=== PATIENT | female | born 1975 | race Two or more races ===

== ENCOUNTER 2023-05-09 20:53 | Inpatient (IN) | payer OTHER ==
[~2023-05-09] VITALS: Ht 149.9 cm; Wt 68.7 kg
[2023-05-09 21:37] LABS: Urine Bacteria FEW /hpf (None Seen); Urine Blood Negative /uL (Negative); Urine Clarity HAZY (Clear); Urine Color Yellow (Yellow); Urine Mucus FEW (None Seen); Urine Protein, UAD 1+ (Negative); Urine Specific Gravity 1.049 (1.001-1.035); Urine Urobilinogen Normal (Negative); Urine WBC 75 /hpf (0 - 5); Urine pH 5.5 (5.0-8.0)
[2023-05-09 23:15] LABS: Basophils # (auto) 0.1 10 ^3/uL (0-0.2); Basophils % (auto) 0.7 % (0.0-2.0); Eosinophils # (auto) 0.2 10 ^3/uL (0-0.8); Eosinophils % (auto) 1.8 % (0.0-7.0); Hematocrit 47.3 % (36.0-46.0); Hemoglobin 15.9 g/dL (12.2-16.2); Lymphocytes # (auto) 2.4 10 ^3/uL (0.4-5.4); Lymphocytes % (auto) 28.2 % (10.0-50.0); Mean Corpuscular Hemoglobin 28.7 pg (28.0-32.0); Mean Corpuscular Hgb Conc. 33.6 g/dL (32.0-36.0); Mean Corpuscular Volume 85.3 fL (80.0-100.0); Monocytes # (auto) 0.7 10 ^3/uL (0-1.3); Monocytes % (auto) 8.8 % (0.0-12.0); Neutrophils # (auto) 5.1 10 ^3/uL (1.6-8.6); Neutrophils % (auto) 60.5 % (37.0-80.0); Nucleated Red Blood Cells % 0.2 %; Red Blood Cells 5.55 10^6/uL (4.0-5.20); Red Cell Distribution Width 13.7 % (11.8-14.3); White Blood Cell 8.5 10^3/uL (4.4-10.8)
[2023-05-09 23:32] LABS: Lactic Acid w/Reflex 2.3 mmol/L (0.4-2.0)
[2023-05-09 23:33] LABS: Alanine Aminotransferase 30 U/L (7-40); Albumin 4.5 g/dL (3.2-4.8); Alkaline Phosphatase 109 U/L (46-116); Anion Gap 10.2 (5-15); Aspartate Aminotransferase 24 U/L (13-40); BUN/Creatinine Ratio 9.7 (10.0-20.0); Bilirubin, Total 0.7 mg/dL (0.2-1.0); Blood Urea Nitrogen 6 mg/dL (9-23); Calcium 9.1 mg/dL (8.5-10.1); Carbon Dioxide 19.8 mmol/L (20-30); Chloride 107 mmol/L (98-107); Glucose 271 mg/dL (74-106); Potassium 4.2 mmol/L (3.5-5.1); Sodium 137 mmol/L (136-145); Total Protein 7.4 g/dL (5.7-8.2)
[2023-05-09 23:42] LABS: CRP High Sensitivity 1.18 mg/dL (<1.0)
[2023-05-09 23:44] LABS: Erythrocyte Sedimentation Rate 14 mm/hr (0-20)
[2023-05-10] MEDS ORDERED: HYDROcodone-ACET 5/325MG TAB PO ONE (01:15)
[2023-05-10] MEDS ORDERED: DexAMETHasone SOD PHOS 10MG/1ML VIAL INJ IV ONE (03:15)
[2023-05-10] MEDS ORDERED: PANTOPRAZOLE 40 MG/10 ML VIAL INJ IV ONE (03:15)
[2023-05-10] MEDS ORDERED: SODIUM CHLORIDE 0.9% 1,950 ML IV ONE (03:15)
[2023-05-10] MEDS ORDERED: ONDANSETRON HCL 4 MG/2 ML VIAL IV ONE (03:45)
[2023-05-10] MEDS ORDERED: CEFTRIAXONE SODIUM 2 GM in D5W 5% 100 ML IV ONE (03:45)
[2023-05-10] MEDS ORDERED: VANCOMYCIN PER PHARMACY 0 MG IV SCH ×2 (03:45→09:00)
[2023-05-10] MEDS ORDERED: MORPHINE SULFATE 4 MG/ML SYR/VIAL IV ONE (03:45)
[2023-05-10] MEDS ORDERED: cefTRIAXone SOD 1,000 MG VL ONE (03:49)
[2023-05-10] MEDS ORDERED: VANCOMYCIN 1GM/250ML 250 ML IV ONE (05:00)
[2023-05-10] MEDS ORDERED: cefTRIAXone 1GM/50ML D5W 50 ML IV ONE (08:30)
[2023-05-10] MEDS ORDERED: SODIUM CHLORIDE 0.9% 1,000 ML IV ONE ×2 (08:30)
[2023-05-10] MEDS ORDERED: NITROGLYCERIN 0.4 MG SL TAB SL PRN ×2 (09:00→14:45)
[2023-05-10] MEDS ORDERED: ACETAMINOPHEN 325 MG TAB PO PRN (09:00)
[2023-05-10] MEDS: SODIUM CHLORIDE 0.9% 1,000 ML IV SCH ×2 (09:00→17:20)
[2023-05-10] MEDS ORDERED: MORPHINE SULFATE INJ 2 MG/ml SYRG IV PRN ×2 (09:00→14:45)
[2023-05-10] MEDS: ENOXAPARIN SOD 40 MG/0.4 ML SYRINGE SC SCH (11:32)
[2023-05-10 18:00] VITALS: BP 124/83; PULSE 96; RESP 17; TEMP 97.7; O2SAT 98
[2023-05-10] MEDS: VANCOMYCIN 1GM/250ML 250 ML IV SCH (18:15)
[2023-05-10 20:00] VITALS: PULSE 83
[2023-05-11] VITALS (7 sets, daily range): BP systolic 103–142; BP diastolic 69–77; PULSE 57–85; RESP 16–18; TEMP 97.3–98.4; O2SAT 94–100
[2023-05-11] MEDS: SODIUM CHLORIDE 0.9% 1,000 ML IV SCH ×3 (02:17→18:40)
[2023-05-11] MEDS: VANCOMYCIN 1GM/250ML 250 ML IV SCH ×2 (04:52→18:40)
[2023-05-11 07:29] LABS: Alanine Aminotransferase 20 U/L (7-40); Alkaline Phosphatase 82 U/L (46-116); Anion Gap 8.7 (5-15); BUN/Creatinine Ratio 11.4 (10.0-20.0); Blood Urea Nitrogen 8 mg/dL (9-23); Calcium 8.5 mg/dL (8.5-10.1); Carbon Dioxide 20.3 mmol/L (20-30); Chloride 108 mmol/L (98-107); Glucose 318 mg/dL (74-106); Potassium 3.7 mmol/L (3.5-5.1); Sodium 137 mmol/L (136-145)
[2023-05-11 07:30] LABS: Albumin 3.6 g/dL (3.2-4.8); Aspartate Aminotransferase 9 U/L (13-40)
[2023-05-11 07:31] LABS: Bilirubin, Total 0.9 mg/dL (0.2-1.0); Total Protein 5.9 g/dL (5.7-8.2)
[2023-05-11 07:35] LABS: Basophils # (auto) 0 10 ^3/uL (0-0.2); Basophils % (auto) 0.2 % (0.0-2.0); Eosinophils # (auto) 0.1 10 ^3/uL (0-0.8); Eosinophils % (auto) 0.7 % (0.0-7.0); Hematocrit 38.8 % (36.0-46.0); Hemoglobin 13.3 g/dL (12.2-16.2); Lymphocytes # (auto) 1.9 10 ^3/uL (0.4-5.4); Mean Corpuscular Hemoglobin 29.3 pg (28.0-32.0); Mean Corpuscular Hgb Conc. 34.1 g/dL (32.0-36.0); Mean Corpuscular Volume 85.9 fL (80.0-100.0); Monocytes # (auto) 0.6 10 ^3/uL (0-1.3); Monocytes % (auto) 8.3 % (0.0-12.0); Neutrophils % (auto) 65.8 % (37.0-80.0); Nucleated Red Blood Cells % 0.1 %; Red Blood Cells 4.52 10^6/uL (4.0-5.20); Red Cell Distribution Width 13.2 % (11.8-14.3); White Blood Cell 7.6 10^3/uL (4.4-10.8)
[2023-05-11] MEDS: cefTRIAXone 1GM/50ML D5W 50 ML IV SCH (11:12)
[2023-05-11] MEDS: ENOXAPARIN SOD 40 MG/0.4 ML SYRINGE SC SCH (11:12)
[2023-05-12] MEDS: SODIUM CHLORIDE 0.9% 1,000 ML IV SCH ×2 (02:06→10:00)
[2023-05-12] MEDS: VANCOMYCIN 1GM/250ML 250 ML IV SCH ×2 (04:54→15:00)
[2023-05-12 05:00] VITALS: BP 99/53; PULSE 79; RESP 16; TEMP 97.9; O2SAT 100
[2023-05-12 08:00] VITALS: PULSE 59
[2023-05-12 08:06] VITALS: RESP 18
[2023-05-12 09:36] VITALS: BP 116/79; PULSE 79; RESP 19; TEMP 98.9; O2SAT 97
[2023-05-12] MEDS: cefTRIAXone 1GM/50ML D5W 50 ML IV SCH (09:59)
[2023-05-12] MEDS: ENOXAPARIN SOD 40 MG/0.4 ML SYRINGE SC SCH (09:59)
[2023-05-12] MEDS ORDERED: CIPR-173 PO (12:29)
[2023-05-12] MEDS ORDERED: METF-372 PO (12:29)
[2023-05-12] MEDS ORDERED: DEXTROSE (50%) 50ML SYRG IV PRN (13:00)
[2023-05-12] MEDS: ACCU-CHEK COMFORT CURVE STRIP VI SCH ×2 (13:21→17:20)
[2023-05-12] MEDS: InsuLIN REG 1unit/0.01ml Soln (100units/ml) SC SCH ×2 (13:29→17:26)
[2023-05-12 14:37] VITALS: BP 115/55; PULSE 71; RESP 19; TEMP 98.3; O2SAT 98
[2023-05-12 16:41] VITALS: BP 106/73; PULSE 72; RESP 19; TEMP 98.3; O2SAT 98
[2023-05-12] MEDS ORDERED: InsuLIN REG 1unit/0.01ml Soln (100units/ml) SC SCH (22:00)
== END 2023-05-12 18:10 | disposition home or self-care (01) | DRG 872 ==
LOC: ER 20:56 → UNDOADMIN 05-10 09:00 → TELE 05-10 09:00 → TELE-WESTW 05-10 17:36
PROVIDERS: ADMIT Nurse Practitioner Family; ATTEND Family Medicine
DX: A41.9 Sepsis, unspecified organism (principal); N39.0 Urinary tract infection, site not specified; E11.42 Type 2 diabetes mellitus with diabetic polyneuropathy; F17.200 Nicotine dependence, unspecified, uncomplicated; G89.29 Other chronic pain; Z83.3 Family history of diabetes mellitus
CPT/HCPCS: 36415; 70551; 71045; 72128; 72131; 72146; 72148; 74176; 80053; 80202; 81001; 82962; 83036; 83605; 83880; 84443; 84484; 85025; 85652; 86141; 87040; 87086; 93005; 96365; 96367; 96375; 97110; 97116; 97163; 97530; 99291; C9113; G0378; J0696; J1100; J1815; J7060